=== PATIENT | male | born 1995 | race African-American/Black ===

== ENCOUNTER 2020-07-08 22:18 | Emergency (ER) | payer MEDICAID ==
[~2020-07-08] VITALS: Ht 193 cm; Wt 117.9 kg
--- NOTE | 2020-07-08 22:31 | NUR ---
ED Nurse Note: Emergency Contact Junaid yancey
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
[2020-07-08 22:35] VITALS: BP 157/99
--- NOTE | 2020-07-08 22:36 | NUR ---
ED Nurse Note: Pt brought [facility] from [facility]. pt stated he is having suicical thoughts and attempted to end his life today by banging head on the wall. Pt says he has not taken his medicine Depakote 200mg. pt has a hx of psychiatric problems. vitals are stable. pt is calm and cooperative .
[2020-07-08] MEDS ORDERED: Depakote 500mg tab ORAL ONE (22:45)
[2020-07-08 23:13] LABS: BASOPHILS % (AUTO) 0.6 % (0.0-2.0); HEMATOCRIT 45.9 % (42.0-52.0); HEMOGLOBIN 14.6 G/DL (14.2-18.0); MEAN CORPUSCULAR VOLUME 96 FL (80-99); MONOCYTES % (AUTO) 6.1 % (1.0-10.0); NEUTROPHILS % (AUTO) 65.3 % (45.0-75.0); PLATELET COUNT 206 K/UL (150-450); RED BLOOD COUNT 4.78 M/UL (4.70-6.10); RED CELL DISTRIBUTION WIDTH 13.9 % (11.6-14.8); WHITE BLOOD COUNT 8.9 K/UL (4.8-10.8)
[2020-07-08 23:42] LABS: ANION GAP 6 mmol/L (5-15); BLOOD UREA NITROGEN 12 mg/dL (7-18); CALCIUM 9.7 MG/DL (8.5-10.1); CARBON DIOXIDE 31 MMOL/L (21-32); CHLORIDE 105 MMOL/L (98-107); POTASSIUM 3.8 MMOL/L (3.5-5.1); SODIUM 142 MMOL/L (136-145)
[2020-07-08 23:47] LABS: ALANINE AMINOTRANSFERASE 24 U/L (12-78); ALBUMIN 4.1 G/DL (3.4-5.0); ALKALINE PHOSPHATASE 69 U/L (46-116); ASPARTATE AMINO TRANSFERASE 21 U/L (15-37); BILIRUBIN,TOTAL 0.4 MG/DL (0.2-1.0)
--- NOTE | 2020-07-08 23:57 | NUR ---
ED Nurse Note: urine sent to lab
[2020-07-09] VITALS (7 sets, daily range): BP systolic 116–142; BP diastolic 80–98
--- NOTE | 2020-07-09 00:12 | NUR ---
`ED Nurse Note: pt is sleeping on the bed, vitals are stable and no breathing problem.
--- NOTE | 2020-07-09 02:49 | NUR ---
ED Nurse Note: pt got up to use bathroom, his A&O 3-4, verbal, vital are stable, and no breathing problem.
--- NOTE | 2020-07-09 03:50 | NUR ---
ED Nurse Note: Dr. Winkler spoke to Junaid Trotter (pts dad)
--- NOTE | 2020-07-09 05:00 | NUR ---
ED Nurse Note: [facility] [phone] Ingrid Courtney Service Access Management Johann Benavides (child welfare caseworker) [phone]
--- NOTE | 2020-07-09 05:53 | NUR ---
ED Nurse Note: [facility] - "Day[facility]"; No beds [facility] - "AUGUST"; No beds [facility] - "guadalupe"; No beds [facility] - no answer [facility] - "Allison"; FS and clinicals faxed Jean -no answer
--- NOTE | 2020-07-09 06:10 | NUR ---
ED Nurse Note: pt is on his bed awake, A&Ox 3-4, verbal, vitals are stable, and no breathing problem. we will keep monitoring the pt.
--- NOTE | 2020-07-09 08:18 | NUR ---
[facility] Brigido Myers, DON Weldon Per Arina Courtney, Depakote 250mg 1x/day, 3x/night and risperidone 3mg 1x/day, 1x/night
--- NOTE | 2020-07-09 08:31 | NUR ---
HERBARIUM WORKER NOTE ELISEO spoke w/ Melonie from [facility] [phone] that they do not accept out of state insurance. The referral has been declined. ELISEO spoke w/ Khai from [facility] [phone] that they do not accept out of state Medicaid. ELISEO attempted to call [facility] [phone] [phone], the call was not answered and left a vm for call back. Addendum: 07/09/20 at 0843 by AKHIL GOMES ELISEO spoke w/ merlyn's pharmaceutical service representative, Johann that pt is not conserved in the state of [place] and he has a payee.
--- NOTE | 2020-07-09 08:58 | NUR ---
SALES REPRESENTATIVE MALT LIQUORS NOTE ELISEO spoke w/ [facility] center [phone], was informed to call [facility] and [facility]. ELISEO spoke w/ Ramin from [facility] that [phone] that the referral cannot be accepted/accommodated and most hospitals may not accept the referral as insurance cannot be verified. ELISEO called [facility] [phone], was informed that referral cannot be accepted d/t out of state insurance. Conference call to be hold w/ family, and outpatient service provider. Addendum: 07/09/20 at 0903 by AKHIL GOMES ELISEO called [facility] [phone] and was informed that they are not contacted w/ out of state insurance. Thus, the referral cannot be accepted.
--- NOTE | 2020-07-09 09:13 | NUR ---
ED Nurse Note: 0730: taking over pt care. pt resting in bed. given food/water. pt calm & cooperative. will continue to monitor. Addendum: 07/09/20 at 1614 by [facility] ED Nurse Note: 0730: taking over pt care. pt resting in bed. given food/water. pt calm & cooperative. will continue to monitor. 0930: pt assisted with phone use to notify job of leave of absence. 1300: pt resting in bed. pt given lunch. will continue to monitor. pt calm & cooperative. 1600: pt sleeping in bed. will continue to monitor. pt calm & cooperative.
--- NOTE | 2020-07-09 11:06 | NUR ---
COMMUNITY SUPPORT PROFESSIONAL NOTE conference call today at 12pm w/ family, service provider, ELISEO and ARIANNA. Addendum: 07/09/20 at 1253 by AKHIL GOMES ELISEO assisted filing the lost and found report w/ [employer] Report#[id number]
--- NOTE | 2020-07-09 13:11 | NUR ---
AVIATION TECHNICAL SYSTEMS SPECIALIST NOTE Per outpatient member services coordinator, non par agreement may be granted. ELISEO spoke w/ Jaswinder from [facility] faxed the clinicals to [phone] ELISEO spoke w/ Darlin from [facility] and faxed the clinicals to [phone] ELISEO called [facility] faxed the clinicals to [facility] [phone]. The clinicals will be reviewed but bed won't be available till tomorrow. [facility]- not accepting out of state medicaid [facility]- no male bed available [facility]- not accepting out of state medicaid
--- NOTE | 2020-07-09 16:25 | NUR ---
INVESTIGATIONS DIRECTOR NOTE SW spoke w/ Fany from [facility] that they have requested the authorization/verification to the [facility]. Currently pending at this time. SW attempted to call [facility], not answered, no voicemail option.
--- NOTE | 2020-07-09 17:03 | NUR ---
ED Nurse Note: pt has social work at bedside. pt requesting to go home, does not wish to stay here. plan for pt to stay overnight and call family in AM.
--- NOTE | 2020-07-09 17:56 | NUR ---
ED Nurse Note: pt in room. pt offered food, water. pt refused. pt ambulate to bathroom. pt A&OX4, stable. pt calm & cooperative. will continue to monitor.
--- NOTE | 2020-07-09 19:11 | NUR ---
ED Nurse Note: pt given food, fluids. pt ambualting in hallway. pt calm & cooperative. will continue to monitor.
--- NOTE | 2020-07-09 19:20 | NUR ---
ED Nurse Note: recived care from Cash SNOWDEN
--- NOTE | 2020-07-09 20:05 | NUR ---
ED Nurse Note: Pt is resitn with eyes closed, breathing is even and unlabored. Pt walked tot he restroom with no adverse events.
--- NOTE | 2020-07-09 21:37 | Emergency Room Report ---
Physical Exam Vital Signs Date Time Temp Pulse Resp B/P (MAP) Pulse Ox O2 Delivery O2 Flow Rate FiO2 07/08/20 22:20 98.4 89 18 157/99 (118) 100 07/09/20 00:14 Room Air (Ernesto Martinez MD) Medical Decision Making Diagnostic Impression: Primary Impression: Behavioral disorder Additional Impressions: Intellectual disability Schizoaffective disorder, bipolar type ER Course Assumed care of the patient from the previous provider at approximately 1500. Please refer to initial note for full history and physical exam. Briefly, 25-year-old male history of intellectual delay and behavioral disturbances remains in the emergency department pending social work facilitation of transfer back to his home in [place]. He has been calm and cooperative. We will continue to monitor. (Ernesto Martinez MD) ER Course See above note. Attempting to place patient. Patient calm and cooperative. Ordering Depakote and Risperdal. According to the board and care - Depakote 250 mg/day and Risperdal 3 mg BID. Call to Junaid biggs - hxqkyke left to call. [phone] Spoke with dad. Will contact social work case manager at residential to contact us. [phone] No call back from social work case manager. (Bhargav Sevilla MD) Last Vital Signs Date Time Temp Pulse Resp B/P (MAP) Pulse Ox O2 Delivery O2 Flow Rate FiO2 07/09/20 20:06 98.0 90 18 116/80 97 Room Air (Ernesto Martinez MD) Disposition: PSYCH HOSP/UNIT Condition: Stable Referrals: NOT CHOSEN IPA/[place],REFERRING (PCP) Ernesto Martinez MD Jul 09, 2020 21:37 Bhargav Sevilla MD Jul 10, 2020 06:57
--- NOTE | 2020-07-10 00:11 | NUR ---
ED Nurse Note: Pt is resting, eyes are closed breathing is even and unlabored, he is refusing vitals requesting to sleep.
[2020-07-10 00:28] VITALS: BP 128/82
--- NOTE | 2020-07-10 02:21 | NUR ---
ED Nurse Note: Pt is resting, eyes are closed breathing is even and unlabored, he is refusing vitals requesting to sleep.
[2020-07-10 05:38] VITALS: BP 132/85
--- NOTE | 2020-07-10 05:39 | NUR ---
ED Nurse Note: Pt ambulated to the restroom. vitals are stable as documented
--- NOTE | 2020-07-10 06:44 | NUR ---
MANAGER GRAPHIC NOTE SW received a message from [facility] that they will not accommodate pt.
[2020-07-10] MEDS ORDERED: Depakote ER 250mg tab ORAL ONE (06:57)
--- NOTE | 2020-07-10 07:09 | NUR ---
ED Nurse Note: Plan of care endorsed to Lesly SNOWDEN
--- NOTE | 2020-07-10 07:53 | NUR ---
ED Nurse Note: pt requesting breakfast. dietary called and they are bringing it
--- NOTE | 2020-07-10 08:00 | NUR ---
FISHING TOOL SUPERVISOR NOTE SW met w/ pt to assess his mood. PT reports he is feeling better today. Pt reports having intermittent suicidal thought. SW will continue to F/U. SW left a vm to pt's father, Junaid Trotter for call back [phone]
--- NOTE | 2020-07-10 08:00 | NUR ---
CALLED PATIENTS FATHER AND LEFT MESSAGE TO CALL US BACK . PATIENT WANTS TO GO HOME
[2020-07-10 08:45] VITALS: BP 119/79
--- NOTE | 2020-07-10 08:49 | NUR ---
HORSE TRADER NOTE SW spoke w/ Melonie from [facility] [phone] and was informed that pt's referral has been declined and they cannot accommodate pt. Prelim dc plan is pt to be stabilize with medication and the family to accommodate the transportation to [place].
[2020-07-10] MEDS ORDERED: Depakote 500mg tab ORAL SCH (09:00)
--- NOTE | 2020-07-10 11:06 | NUR ---
ED Nurse Note: pt resting in bed in no noted distress
--- NOTE | 2020-07-10 12:10 | NUR ---
Called patients father , dr Sevilla spoke to father mr tiwari
--- NOTE | 2020-07-10 12:12 | NUR ---
per dr hull the father will call the jail to cordinate the transfer to back home
--- NOTE | 2020-07-10 13:18 | NUR ---
ED Nurse Note: pt appears to be talking to himself and laughing
--- NOTE | 2020-07-10 13:24 | NUR ---
SKILLED NURSING PROFESSIONAL NOTE ELISEO called [facility] [phone], Ms. Courtney is not available to take the call per staff. This SW left a message for Ingrid [facility] to call back. Addendum: 07/10/20 at 1339 by AKHIL GOMES rAina Courtney* ELISEO received the call back from Arina Sherwin and confirmed that she is the payee. However, pt's father, Mr. Trotter did not contact her for the transportation and Ms. Courtney will not arrange transportation as his social security income covers the month's rent.
--- NOTE | 2020-07-10 13:29 | NUR ---
ED Nurse Note: pt given lunch, pt has water at the bedside. pt asking appropriate questions and doesn't appear to be in any distress
--- NOTE | 2020-07-10 15:17 | NUR ---
ENVIRONMENTAL SCIENCE TECHNICIAN NOTE SW spoke w/ pt's adopted father, Junaid Trotter, was informed that he is asking assistance from his outpatient provider. Outpatient provider will attempt to access the state fund. This SW is actively communicating w/ outpatient provider for assistance. Per Junaid Trotter, he may need more time to arrange the transportation and he will F/U w/ outpatient provider tomorrow morning.
--- NOTE | 2020-07-10 16:22 | NUR ---
ED Nurse Note: pt resting with eyes closed making snore like sounds
--- NOTE | 2020-07-10 17:49 | NUR ---
ED Nurse Note: pt resting with eyes closed making a snoring like noise.
--- NOTE | 2020-07-10 18:58 | NUR ---
ED Nurse Note: pt was given dinner and ate all of it.
--- NOTE | 2020-07-10 20:14 | NUR ---
ED Nurse Note: Recived care from Lesly SNOWDEN. Pt is resting eyes closed. Breathing is pam and unlabored. Vitals are stabl on RA as docuemtned.
[2020-07-10 20:15] VITALS: BP 132/82
--- NOTE | 2020-07-10 20:16 | NUR ---
ED Nurse Note: Leroy OCHOA ok to give respiradone late.
--- NOTE | 2020-07-11 | NUR ---
ED Nurse Note: PT is resting comfortably, eyes closed, breathing is even and unlabored. Pt is refusing vitals requesting to sleep.
--- NOTE | 2020-07-11 03:35 | NUR ---
ED Nurse Note: PT is resting eyes closed, no signs of distress noted.
[2020-07-11 03:36] VITALS: BP 136/79
--- NOTE | 2020-07-11 05:14 | NUR ---
ED Nurse Note: Pt is resting with eyes closed, breathing is easy and unlabored, no signs of distress noted.
--- NOTE | 2020-07-11 07:50 | NUR ---
ED Nurse Note: social problems specialist speaking with pt. asked social problems specialist for an update. she stated that the family is trying to get him a ticket to go home, that's all she knows now.
--- NOTE | 2020-07-11 08:07 | NUR ---
REACTOR TECHNICIAN NOTE ELISEO was informed by Johann that his team is attempting to check his benefit status. ELISEO provided the update to pt. PT reports he has $20 left in his bank account. Pt reports he is feeling much better and that he does not verbalize suicidal thought at this time. ELISEO will continue to F/U. Addendum: 07/11/20 at 0847 by AKHIL GOMES No ID found from [employer]
--- NOTE | 2020-07-11 09:56 | NUR ---
WOOD SHOP TEACHER NOTE SW is actively communicating with the outpatient mental health provider to see if they could accommodate the flight ticket.
--- NOTE | 2020-07-11 10:38 | NUR ---
ED Nurse Note: pt requested juice and water. this was given to pt. pt in room laughing and appears to be talking to himself or someone. no aggression noted. pt asking numerous questions about [facility]. he waned to know if a cab would drive him there.
[2020-07-11] MEDS ORDERED: Depakote 500mg tab ORAL ONE (10:45)
[2020-07-11 12:04] VITALS: BP 127/72
--- NOTE | 2020-07-11 12:08 | NUR ---
ED Nurse Note: pt is resting in bed waiting on lunch to be brought to him
--- NOTE | 2020-07-11 13:18 | NUR ---
ED Nurse Note: called for lunch tray
--- NOTE | 2020-07-11 15:23 | NUR ---
ED Nurse Note: pt is in room, was given more juice and water. pt can be heard laughing and talking to himself. pt has not shown any aggression or agitation thus far this shift.
--- NOTE | 2020-07-11 15:42 | NUR ---
PARTS ROOM ASSOCIATE NOTE The outpatient service provider team informed this SW that the team is exploring the flight ticket within "the next couple of days". SW emphasized pt is medically stable and transportation needs to be arranged as soon as possible.
--- NOTE | 2020-07-11 18:18 | NUR ---
ED Nurse Note: pt ate dinner, stands at door talking with this RN. Goes back into his room and starts laughing.
--- NOTE | 2020-07-11 19:09 | NUR ---
ED Nurse Note: pt resting with eyes closed making a snoring like sound
--- NOTE | 2020-07-11 19:30 | NUR ---
ED Nurse Note: Recieved report from am nurse to resume care, pt in bed sleeping, arouses easily to verbal stimuli, pt is cooperative but does not talk much, when asked if remains suicidal pt states "yes" but gives no details or other info, denies homicidal ideations or hallucinations, pt does state "i have no more money", pt here for past 3 days on suicidal precautions, waiting for placement, pt close to nurses station for constant observation, will continue to closely montior for any chagnes or increased distress, pt deneis chest pain, or any pain, no sob or labored breathing or distress noted.
[2020-07-11 20:00] VITALS: BP 134/79
--- NOTE | 2020-07-11 20:45 | NUR ---
Face sheet, dictations, negative Covid test and clinicals faxed to Brown at [facility] [phone].
--- NOTE | 2020-07-11 22:20 | NUR ---
Spoke with Brown at [facility]-received all information, will call us back.
--- NOTE | 2020-07-11 23:00 | NUR ---
ED Nurse Note: Pt continues to sleep in bed, snoring, awakens easily to verbal stimuli, denies any changes or needs, declines food or water, pt asked for urine specimen, pt gave and remains cooperative and went back to sleep, pt did not answer any questions just stating "im ok", info given to facilities for possible placement, will continue to monitor and remain on suicidal precautions until disposition info recieved.
--- NOTE | 2020-07-11 23:14 | NUR ---
Face sheet, dictations, covid negative result and clinicals faxed to [facility] [phone].
--- NOTE | 2020-07-11 23:44 | NUR ---
Andree called from [facility] stating they need PCR covid test,which is not provided at this [facility] at this time. Therefore , [facility] is declining patient. [facility] declined for the same reason..
[2020-07-12 00:23] LABS: APPEARANCE,URINE CLEAR; BILIRUBIN, URINE NEGATIVE (NEGATIVE); COLOR,URINE PALE YELLOW; GLUCOSE, URINE (UA) NEGATIVE (NEGATIVE); KETONES,URINE NEGATIVE (NEGATIVE); NITRITE,URINE NEGATIVE (NEGATIVE); PH,URINE 6.5 (4.5-8.0); PROTEIN,URINE NEGATIVE (NEGATIVE); UROBILINOGEN,URINE 4 MG/DL (0.0-1.0)
[2020-07-12 00:47] LABS: LEUKOCYTE ESTERASE ,URINE NEGATIVE (NEGATIVE)
--- NOTE | 2020-07-12 03:18 | NUR ---
[phone], gave me [phone]-who takes care of [facility]only, gave [phone]= Shalonda answers . Shalonda will call me back after attempt to find a placement.
--- NOTE | 2020-07-12 07:59 | NUR ---
ED Nurse Note: pt awake and ambulated to bathroom in no noted distress
--- NOTE | 2020-07-12 08:30 | NUR ---
ED Nurse Note: pt eating breakfast, brought him extra water and juice
--- NOTE | 2020-07-12 08:45 | NUR ---
ED Nurse Note: COVID swab sent.
[2020-07-12 09:03] VITALS: BP 126/86
--- NOTE | 2020-07-12 09:17 | NUR ---
ED Nurse Note: pt in room talking and laughing, no one is with him
--- NOTE | 2020-07-12 09:19 | NUR ---
ED Nurse Note: pt states that he is still having a "little bit" thoughts of hurting himself. asked pt what he's doing in his room and he said, "just walking around". asked if he was bored and he said, "just walking around".
--- NOTE | 2020-07-12 10:57 | NUR ---
SOCIAL SERVICE NOTE NO update from the father/outpatient service provider.
--- NOTE | 2020-07-12 12:45 | NUR ---
pt eating lunch,talking to himself
--- NOTE | 2020-07-12 13:12 | NUR ---
FUNERAL LIMOUSINE DRIVER NOTE SW received an update from the outpatient provider, Johann that the father may come to [place] on next Wednesday07/15/2020. However, the provider reports the father was unable to guarantee such visit at this time. The provider is attempting to confirm his visit and flight.
--- NOTE | 2020-07-12 15:42 | NUR ---
FRAME AND SCRAP CRUSHER NOTE SW left a vm to pt's father, Junaid Trotter [phone] for call back. This SW has not confirmed if the father will come to [place] to pick pt up.
--- NOTE | 2020-07-12 17:33 | NUR ---
ED Nurse Note: pt ate dinner and is laying in bed in no noted distress. pt continues to talk to himself and laugh. he has been speaking to this RN on and off today.
--- NOTE | 2020-07-13 07:40 | NUR ---
pt resting in no noted distress
--- NOTE | 2020-07-13 10:00 | NUR ---
pt showered, was given toothpaste and toothbrush, clean underwear and tshirt.
--- NOTE | 2020-07-13 12:51 | NUR ---
pt pacing, gave him a sandwich and drinks before his lunch comes.
--- NOTE | 2020-07-13 13:00 | NUR ---
pt received lunch
--- NOTE | 2020-07-13 13:51 | NUR ---
pt resting with eyes closed in no noted distress making a snoring like sound
[2020-07-13 14:13] VITALS: BP 123/78
--- NOTE | 2020-07-13 16:47 | NUR ---
pt resting with eyes closed in no noted distress
--- NOTE | 2020-07-13 17:19 | NUR ---
pt received dinner
[2020-07-13] MEDS ORDERED: Depakote ER 250mg tab ORAL SCH (18:30)
--- NOTE | 2020-07-13 19:48 | NUR ---
Spoke with lab regarding approximate time for Covid send out test result- Lab states they checked with company who is running the test and they tald that there is no one to oyster picker the test until Wednesday AM. Test swab still sitting in our lab, waiting for oyster picker.
--- NOTE | 2020-07-14 07:35 | NUR ---
pt resting in no noted distress
--- NOTE | 2020-07-14 09:11 | NUR ---
pt was given breakfast and 2 pitchers of water
--- NOTE | 2020-07-14 09:11 | NUR ---
has access to bathroom if needed at anytime
[2020-07-14 09:34] VITALS: BP 143/84
--- NOTE | 2020-07-14 09:35 | NUR ---
pt up in his room ambulating in his room back and forth
--- NOTE | 2020-07-14 12:30 | NUR ---
pt was given lunch
--- NOTE | 2020-07-14 17:33 | NUR ---
pt received dinner and is in his room eating
--- NOTE | 2020-07-14 18:40 | NUR ---
Dr. Trinidad gave order to hold the Depakote tonight due to the dose changing. med held
--- NOTE | 2020-07-15 08:32 | NUR ---
pt awake standing at the door waiting on breakfast
--- NOTE | 2020-07-15 09:25 | NUR ---
pct dietary x2 for breakfast
[2020-07-15 14:11] VITALS: BP 121/80
--- NOTE | 2020-07-15 15:02 | NUR ---
pt in his room, having to ask him several times to go back into his room.
--- NOTE | 2020-07-15 15:52 | NUR ---
pt in his room pacing around. he was asked not to come out into the hallway
--- NOTE | 2020-07-15 17:36 | NUR ---
pt received dinner tray
--- NOTE | 2020-07-15 18:55 | NUR ---
pt in his room resting
--- NOTE | 2020-07-15 19:30 | NUR ---
ED Nurse Note: Recieved pt to resume care, pt has been here 1 week ffor psych placement for suicidal ideations, pt is lying in bed, sleeping, arouses easily to verbal stimuli, denies pain, does state he at times has suicidal ideations, denies homicidal ideations or any hallucinations, pt is calm and cooperative, given juice and water, declines food, pt close to nurses station for constant observation, will continue to montior while waiting for psych placement and covid results which is needed for placement.
[2020-07-15 20:00] VITALS: BP 136/81
--- NOTE | 2020-07-16 | NUR ---
ED Nurse Note: No acute changes noted, pt continues to sleep, arouses easily to verbal stimuli, in bed snoring, no sob or labored breathing noted, will continue to closely monitor, no acute changes noted, pt is voluntary psych, no attempts or changes or distress noted.
[2020-07-16 04:15] VITALS: BP 132/69
--- NOTE | 2020-07-16 04:15 | NUR ---
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
--- NOTE | 2020-07-16 06:00 | NUR ---
ED Nurse Note: Pt in room awake and alert, conversing with staff, is pleasant and cooperative, pt was noted talking and laughing with self in room, is calm, does state at times he feels suicidal, denies homicidal ideations or any hallucinations, no changes or increased distress noted, pt given juice and waiting for breakfast tray, nad noted.
--- NOTE | 2020-07-16 07:46 | NUR ---
ED Nurse Note: pt ambulated to bathroom and came back in steady gait. no distress noted at this time.
--- NOTE | 2020-07-16 09:14 | NUR ---
ED Nurse Note: Morning medications carried out as ordered. Patient ambulates in his room with steady gait and without disress. Breakfast and water at the bed side and consumed.
--- NOTE | 2020-07-16 10:04 | NUR ---
GARMENT CUTTER NOTE PT's outpatient provider, Johann informs this SW that pt's parent will not be able to provide transportation from [facility] to his [facility]. Thus, the provider wants to arrange the taxi service from [facility] to [facility]. There is no flight ticket information from [place] to [place].
--- NOTE | 2020-07-16 11:33 | NUR ---
ED Nurse Note: Lunch provided to patient.
--- NOTE | 2020-07-16 17:07 | NUR ---
ADMINISTRATIVE MEDICAL DIRECTOR NOTE ELISEO spoke w/ Art from [facility] [phone] and faxed the updated clinicals to [phone]. Art will look for the placement, either [place] or [place]. Addendum: 07/16/20 at 1708 by AKHIL GOMES F/U anne marie
--- NOTE | 2020-07-16 19:14 | NUR ---
ED Nurse Note: Pt is AAO x4, ambulatory. Pt has no new needs at this time.
[2020-07-16 19:36] VITALS: BP 135/70
--- NOTE | 2020-07-16 19:36 | NUR ---
ED Nurse Note: [place] and drink provided, per pt request.
--- NOTE | 2020-07-16 19:47 | NUR ---
ED Nurse Note: Clinicals faxed to [phone]
--- NOTE | 2020-07-16 22:04 | NUR ---
ED Nurse Note: Pt ambulated to bathroom, no new needs identified at this time.
--- NOTE | 2020-07-17 06:12 | NUR ---
Pt ambulated to bathroom. No new needs identified at this time.
[2020-07-17 06:13] VITALS: BP 132/68
--- NOTE | 2020-07-17 06:39 | NUR ---
ED Nurse Note: Breakfast tray provided.
[2020-07-17 08:21] VITALS: BP 140/92
--- NOTE | 2020-07-17 09:12 | NUR ---
ORACLE WMS CONSULTANT NOTE SW spoke w/ Melonie from [facility] [phone], stating that the latest update for this referral was that this pt needed 1:1 sitter. This SW informed that this pt DOES NOT need 1:1 sitter. Pt has been calm and cooperative. Per Melonie, pt is currently on waitlist for [place] location. Melonie will request the supervisor grower to F/U with the referral and will get back to this SW within an hour.
--- NOTE | 2020-07-17 10:25 | NUR ---
ED Nurse Note: dr stern here to eval pt and give pyschiatric clearance.
[2020-07-17] MEDS ORDERED: Haloperidol Decanoate (Long Acting) 50mg Inj IM ONE (10:30)
--- NOTE | 2020-07-17 10:30 | NUR ---
ED Nurse Note: SW to do homeless dc per dr stern. dr calzada aware. pt informed of plan to be d/c.
--- NOTE | 2020-07-17 11:00 | NUR ---
ED Nurse Note:PT ESCORTED TO SHOWER PRIOR TO DC.
--- NOTE | 2020-07-17 11:21 | NUR ---
MAILING MANAGER NOTE Dr. Mo cleared pt for psych. Per Dr. Mo, pt does not require psychiatric transfer. Pt presents as A&O4x, cooperative and ambulatory. SW informed pt's outpatient provider, Johann, informed of pt's DC today. Pt agreed to walk-in to the closest homeless snf, coordinate his transportation w/ his provider in [place]. SW provide the map to [facility], and the community resource packet. Pt reports "I want to go to [place] before I go there". SW explained negative ramification of unlicensed facilities/self-directing. Pt verbalized understanding. PT will dc to own resource to preferred location. Tap card will be provided. PT does not have any manager social work concern/needs at this time.
[2020-07-17 11:53] VITALS: BP 140/92
--- NOTE | 2020-07-17 11:53 | NUR ---
ED Nurse Note: Pt cleared by health care Provider for discharge. DC instructions/prescription was given and explained to pt and verbalized understanding of teachings. All medical deviecs such as ID band removed. Pt is AAO x4, ambulatory and left with all personal belongings. pt given homeless assisted info by ELISEO.
--- NOTE | 2020-07-17 18:14 | Consultation ---
DATE OF CONSULTATION: 07/17/2020 CONSULTING PHYSICIAN: Eleanor Mo MD HISTORY OF PRESENT ILLNESS: This is a 25-year-old male who is from [place]. He flew over from [place] to [place] to attend some boxing game. He traveled alone on his own. He came here and stated that he was residing in a skilled nursing. He was brought in to [facility] for suicidal ideation 7 days ago. The patient was admitted on 07/08/2020. The patient has been in the ER for the past 7 days. There is difficulty placing the patient. The patient has been treated with Depakote and risperidone daily. He presented with psychotic symptoms including disorganized speech and behavior. He has been eating adequately and sleeping at night. No behavioral issues noted in the ER. A social security benefits interviewer has tried to place the patient in a psychiatric [place] today. I was consulted to see the patient for the first time. During the evaluation, the patient was calm and did not endorse any depressive, manic, or anxiety symptoms. No psychotic symptoms were elicited. The patient is not having any suicidal or homicidal ideation. He was asking for more food and his family is demanding the patient go to a psych facility. The patient is not meeting the criteria for 5150 or inpatient level of care as he is not suicidal or homicidal. PAST PSYCHIATRIC HISTORY: He stated that he has a psychiatrist in [place]. He has been seeing the patient for schizophrenia and has been prescribing medication. The patient has been noncompliant with his medication. He has a history of psychiatric hospitalization. Denied any suicide attempts in the past. PAST MEDICAL HISTORY: Obesity. He is not having any active medical issues. ALLERGIES: No known drug allergies. SUBSTANCE ABUSE HISTORY: He is denying any current illicit drug use or alcohol. SOCIAL HISTORY: The patient's family lives in [place]. His father is going to fly him back to [place]. He is unemployed. He said he dropped out of high school at 10th grade. 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 The patient was able to answer the questions. Denies any legal issues currently. MENTAL STATUS EXAMINATION: The patient is oriented times self, place, and situation. Mood is neutral. Affect is poor and congruent with mood. Thought process was linear and goal-oriented. Thought content, the patient did not endorse any suicidal or homicidal ideation. Psychotic symptoms included auditory hallucinations, suicidal. Cognition is intact. Insight and judgment is fair. ASSESSMENT: Hillside I Schizophrenia. Hillside II Deferred. Hillside III None. Hillside IV Low. He has family support and he does not have any financial issues. Hillside V 50-60 PLAN: 1. The patient is cleared to be discharged from the ER. The patient does not meet criteria for 5150. 2. The patient will receive the Haldol Decanoate shot and will be given a prescription to follow up with a psychiatrist. The patient will be given referral to alf or any psychiatric facility in case he decompensates. The patient does not meet the criteria for 5150. 3. Discussed with the ER physician. Notified the social security benefits interviewer. Eleanor Mo M.D. DR: CRISTOBAL JOB#: [id number] CC:
== END 2020-07-17 11:53 ==
LOC: EMR 22:50
DX: F91.9 Conduct disorder, unspecified (principal); F32.9 Major depressive disorder, single episode, unspecified; Z91.5 Personal history of self-harm
CPT/HCPCS: 36415; 80053; 80307; 81003; 85025; 99284; G0480